=== PATIENT | male | born 1965 | race Caucasian/White ===

== ENCOUNTER 2018-08-02 13:31 | Emergency (ER) | payer MEDICARE ==
[~2018-08-02] VITALS: Ht 182.9 cm; Wt 90.9 kg
[2018-08-02 13:59] LABS: GLUCOSE,POINT OF CARE 106 MG/DL (70-110)
[2018-08-02] MEDS ORDERED: LORazepam 2 MG TABLET PO ONE (15:45)
[2018-08-02 15:54] LABS: BASOPHILS % (AUTO) 0.8 % (0.0-2.0); EOSINOPHILS % (AUTO) 4.6 % (1.0-6.0); HEMATOCRIT 39.3 % (41-53); HEMOGLOBIN 13.2 g/dL (13.5-17.5); LYMPHOCYTES # (AUTO) 1.7 K/uL (1.0-4.8); LYMPHOCYTES % (AUTO) 40.1 % (22.0-44.0); MEAN CORPUSCULAR HEMOGLOBIN 32.8 pg (26.0-34.0); MEAN CORPUSCULAR HGB CONC 33.5 G/dL (31.0-37.0); MEAN CORPUSCULAR VOLUME 98 fL (80-100); MONOCYTES # (AUTO) 0.5 K/uL (0.1-1.0); MONOCYTES % (AUTO) 11.9 % (2.0-9.0); NEUTROPHILS # (AUTO) 1.8 K/uL (1.8-7.7); NEUTROPHILS % (AUTO) 42.6 % (40.0-70.0); PLATELET COUNT (AUTO) 148 K/uL (150-450); RED BLOOD CELL COUNT(AUTO) 4.01 MIL/uL (4.50-5.90); RED CELL DISTRIBUTION WIDTH 14.8 % (11.5-14.5)
[2018-08-02 16:07] LABS: AMPHET/METH SCREEN,URINE POSITIVE (NEGATIVE); BARBITURATE SCREEN, URINE NEGATIVE (NEGATIVE); BENZODIAZEPINES SCREEN,URINE POSITIVE (NEGATIVE); CANNABINOID SCREEN,URINE NEGATIVE (NEGATIVE); COCAINE SCREEN,URINE NEGATIVE (NEGATIVE); METHADONE SCREEN, URINE NEGATIVE (NEGATIVE); OPIATE SCREEN,URINE NEGATIVE (NEGATIVE); PHENCYCLIDINE SCREEN,URINE NEGATIVE (NEGATIVE)
[2018-08-02 16:10] LABS: ALANINE AMINOTRANSFERASE 69 U/L (12-78); ALBUMIN 3.4 g/dL (3.4-5.0); ALKALINE PHOSPHATASE 82 U/L (46-116); ANION GAP 10 mmol/L (8-16); ASPARTATE AMINOTRANSFERASE 77 U/L (15-37); BILIRUBIN,TOTAL 0.4 mg/dL (0.1-1.0); CARBON DIOXIDE 29 mmol/L (22-29); CHLORIDE 104 mmol/L (98-107); GLOMERULAR FILTR. RATE CALC > 60 mL/min (>60); GLUCOSE,RANDOM 72 mg/dL (70-110); POTASSIUM 3.3 mmol/L (3.5-5.1); SODIUM SERUM 143 mmol/L (136-145); TOTAL PROTEIN, SERUM 7.3 g/dL (6.4-8.2); UREA NITROGEN, BLOOD 14 mg/dL (7-18)
[2018-08-02 16:24] LABS: CALCIUM, TOTAL 8.2 mg/dL (8.8-10.5)
[2018-08-02 16:34] VITALS: BP 113/74
[2018-08-02] MEDS ORDERED: POTASSIUM CHLORIDE 20 MEQ ER TABLET PO ONE (16:45)
== END 2018-08-02 17:48 | disposition home or self-care (01) ==
LOC: EMS 13:33
DX: F10.129 Alcohol abuse with intoxication, unspecified (principal); Y90.6 Blood alcohol level of 120-199 mg/100 ml
CPT/HCPCS: 36415; 80053; 80307; 82962; 85025; 93005; 99284; G0480

== ENCOUNTER 2020-03-18 12:22 | Inpatient (IN) | payer MEDICARE, MEDICAID ==
[~2020-03-18] VITALS: Ht 182.9 cm; Wt 111.2 kg
[2020-03-18] MEDS ORDERED: QUEtiapine FUMARATE 100 MG TABLET PO PRN (14:15)
[2020-03-18] MEDS ORDERED: LORazepam 1 MG TABLET PO PRN (14:15)
[2020-03-18] MEDS ORDERED: ZOLPIDEM TARTRATE 10 MG TABLET PO PRN (14:15)
[2020-03-18 14:30] VITALS: BP 117/77
[2020-03-18] MEDS ORDERED: CEPH-582 PO (15:16)
[2020-03-18] MEDS ORDERED: SOFO1TAB PO (15:16)
[2020-03-18] MEDS ORDERED: SULF1TAB42 PO (15:16)
[2020-03-18] MEDS ORDERED: NAPR250T4 PO (15:16)
[2020-03-18] MEDS ORDERED: QUET100T PO (15:16)
[2020-03-18] MEDS ORDERED: BUPR100 PO (15:16)
[2020-03-18 15:20] VITALS: BP 146/73
[2020-03-18 16:20] VITALS: BP 157/70
[2020-03-18 17:20] VITALS: BP 136/85
[2020-03-18 18:20] VITALS: BP 130/89
[2020-03-18] MEDS ORDERED: ACETAMINOPHEN 325 MG TABLET PO PRN (19:30)
[2020-03-18 19:35] VITALS: BP 112/77
[2020-03-19] MEDS ORDERED: SULFAMETHOX/TRIMETH DS 800-160 MG/TABLET PO SCH (09:00)
[2020-03-19] MEDS ORDERED: BACITRACIN 28.4 GM OINTMENT TP SCH (09:00)
[2020-03-19] MEDS ORDERED: CEPHALEXIN MONOHYDRATE 500 MG CAPSULE PO SCH (09:00)
== END 2020-03-18 23:30 | disposition short-term general hospital (02) | DRG 885 ==
LOC: B2S 14:00
PROVIDERS: ADMIT Psychiatry & Neurology Psychiatry; ATTEND Psychiatry & Neurology Psychiatry
DX: F25.9 Schizoaffective disorder, unspecified (principal)
CPT/HCPCS: Z7610

== ENCOUNTER 2020-07-13 20:43 | Inpatient (IN) | payer MEDICARE, MEDICAID ==
[~2020-07-13] VITALS: Ht 182.9 cm; Wt 99.3 kg
[~2020-07-13 20:43] MED LIST: BUPR-121 PO; QUET100T PO
[2020-07-14] MEDS ORDERED: HALOPERIDOL 5 MG TABLET PO PRN (02:30)
[2020-07-14 02:31] VITALS: BP 123/69
[2020-07-14] MEDS: ZOLPIDEM TARTRATE 10 MG TABLET PO PRN ×2 (03:12→20:28)
[2020-07-14] MEDS: LORazepam 2 MG TABLET PO PRN ×4 (03:12→18:24)
[2020-07-14] MEDS ORDERED: MAG HYDROX/AL HYDROX/SIMETH ES 30 ML SUSPENSION UDCUP PO PRN (06:30)
[2020-07-14] MEDS ORDERED: MAGNESIUM HYDROXIDE SUSPENSION 30 ML UDCUP PO PRN (06:30)
[2020-07-14] MEDS ORDERED: OMEPRAZOLE 20 MG CAPSULE PO PRN (06:30)
[2020-07-14] MEDS ORDERED: LOPERAMIDE HCL 2 MG CAPSULE PO PRN (06:30)
[2020-07-14] MEDS ORDERED: PETROLATUM,WHITE 28 GM JELLY TP PRN (06:30)
[2020-07-14] MEDS ORDERED: BACITRACIN 28 GM OINTMENT TP PRN (06:30)
[2020-07-14] MEDS ORDERED: CloNIDine HCL 0.1 MG TABLET PO PRN (06:30)
[2020-07-14] MEDS ORDERED: IBUPROFEN 600 MG TABLET PO PRN (06:30)
[2020-07-14] MEDS ORDERED: ONDANSETRON HCL 4 MG TABLET PO PRN (06:30)
[2020-07-14] MEDS ORDERED: ALBUTEROL SULFATE HFA 90 MCG/PUFF 8 GM INHALER IH PRN (06:30)
[2020-07-14] MEDS ORDERED: BENZOCAINE/MENTHOL LOZENGE PO PRN (06:30)
[2020-07-14] MEDS ORDERED: DOCUSATE SODIUM 100 MG CAPSULE PO PRN (06:30)
[2020-07-14 08:57] VITALS: BP 114/85
[2020-07-14] MEDS: ACETAMINOPHEN 325 MG TABLET PO PRN (09:01)
[2020-07-14 16:11] VITALS: BP 112/73
[2020-07-15 00:34] VITALS: BP 113/82
[2020-07-15] MEDS: LORazepam 2 MG TABLET PO PRN ×3 (00:34→12:41)
[2020-07-15] MEDS: ACETAMINOPHEN 325 MG TABLET PO PRN ×2 (02:57→08:35)
[2020-07-15] MEDS: BuPROPion HCL XL 150 MG ER TABLET PO SCH (08:30)
[2020-07-15 08:38] VITALS: BP 105/64
[2020-07-15] MEDS ORDERED: TraMADol HCL 50 MG TABLET PO PRN (13:15)
[2020-07-15] MEDS: OMEPRAZOLE 20 MG CAPSULE PO SCH (13:24)
[2020-07-15 16:07] VITALS: BP 137/94
[2020-07-15] MEDS: CELECOXIB 200 MG CAPSULE PO SCH (16:19)
[2020-07-15] MEDS: BACLOFEN 10 MG TABLET PO SCH (16:20)
[2020-07-15] MEDS: HydrOXYzine PAMOATE 50 MG CAPSULE PO SCH (20:08)
[2020-07-15] MEDS: QUEtiapine FUMARATE 100 MG TABLET PO SCH (20:08)
[2020-07-15] MEDS: ZOLPIDEM TARTRATE 10 MG TABLET PO PRN (20:33)
[2020-07-16 00:32] VITALS: BP 128/76
[2020-07-16] MEDS: BuPROPion HCL XL 150 MG ER TABLET PO SCH (08:37)
[2020-07-16] MEDS: LORazepam 2 MG TABLET PO PRN ×2 (08:37→16:30)
[2020-07-16] MEDS: BACLOFEN 10 MG TABLET PO SCH ×3 (09:00→16:30)
[2020-07-16] MEDS: OMEPRAZOLE 20 MG CAPSULE PO SCH (10:22)
[2020-07-16 15:13] VITALS: BP 108/64
[2020-07-16 16:07] VITALS: BP 105/71
[2020-07-16] MEDS: CELECOXIB 200 MG CAPSULE PO SCH (16:30)
[2020-07-16] MEDS: HydrOXYzine PAMOATE 50 MG CAPSULE PO SCH (20:10)
[2020-07-16] MEDS: QUEtiapine FUMARATE 100 MG TABLET PO SCH (20:10)
[2020-07-16] MEDS: ZOLPIDEM TARTRATE 10 MG TABLET PO PRN (20:10)
[2020-07-17 03:10] VITALS: BP 112/68
[2020-07-17] MEDS: CELECOXIB 200 MG CAPSULE PO SCH (06:46)
[2020-07-17 08:04] VITALS: BP 101/61
[2020-07-17] MEDS: OMEPRAZOLE 20 MG CAPSULE PO SCH (08:32)
[2020-07-17] MEDS: BuPROPion HCL XL 150 MG ER TABLET PO SCH (08:32)
[2020-07-17] MEDS: BACLOFEN 10 MG TABLET PO SCH ×3 (08:32→16:15)
[2020-07-17] MEDS: LORazepam 2 MG TABLET PO PRN ×2 (10:54→16:15)
[2020-07-17 16:08] VITALS: BP 132/76
[2020-07-17] MEDS: QUEtiapine FUMARATE 100 MG TABLET PO SCH (20:18)
[2020-07-17] MEDS: HydrOXYzine PAMOATE 50 MG CAPSULE PO SCH (20:18)
[2020-07-17] MEDS: ZOLPIDEM TARTRATE 10 MG TABLET PO PRN (20:18)
[2020-07-18 06:17] VITALS: BP 125/70
[2020-07-18] MEDS: LORazepam 2 MG TABLET PO PRN ×3 (06:39→17:26)
[2020-07-18] MEDS: CELECOXIB 200 MG CAPSULE PO SCH (07:01)
[2020-07-18] MEDS: OMEPRAZOLE 20 MG CAPSULE PO SCH (08:05)
[2020-07-18] MEDS: BACLOFEN 10 MG TABLET PO SCH ×3 (08:05→16:39)
[2020-07-18] MEDS: BuPROPion HCL XL 150 MG ER TABLET PO SCH (08:05)
[2020-07-18 08:06] VITALS: BP 105/66
[2020-07-18 16:09] VITALS: BP 115/74
[2020-07-18] MEDS: MUPIROCIN CALCIUM 2% 22 GM OINTMENT NASAL SCH (16:39)
[2020-07-18] MEDS: QUEtiapine FUMARATE 100 MG TABLET PO SCH (20:30)
[2020-07-18] MEDS: HydrOXYzine PAMOATE 50 MG CAPSULE PO SCH (20:30)
[2020-07-18] MEDS: ZOLPIDEM TARTRATE 10 MG TABLET PO PRN (20:34)
[2020-07-19 06:32] VITALS: BP 105/69
[2020-07-19] MEDS: CELECOXIB 200 MG CAPSULE PO SCH (06:36)
[2020-07-19] MEDS: LORazepam 2 MG TABLET PO PRN ×3 (06:39→17:09)
[2020-07-19] MEDS: OMEPRAZOLE 20 MG CAPSULE PO SCH (08:11)
[2020-07-19] MEDS: BuPROPion HCL XL 150 MG ER TABLET PO SCH (08:11)
[2020-07-19] MEDS: MUPIROCIN CALCIUM 2% 22 GM OINTMENT NASAL SCH ×2 (08:11→17:09)
[2020-07-19] MEDS: BACLOFEN 10 MG TABLET PO SCH ×3 (08:11→17:10)
[2020-07-19 09:03] VITALS: BP 117/73
[2020-07-19 16:42] VITALS: BP 100/67
[2020-07-19] MEDS: QUEtiapine FUMARATE 100 MG TABLET PO SCH (20:18)
[2020-07-19] MEDS: HydrOXYzine PAMOATE 50 MG CAPSULE PO SCH (20:18)
[2020-07-19] MEDS: ZOLPIDEM TARTRATE 10 MG TABLET PO PRN (20:19)
[2020-07-20 04:47] VITALS: BP 115/62
[2020-07-20] MEDS: LORazepam 2 MG TABLET PO PRN (05:29)
[2020-07-20] MEDS: CELECOXIB 200 MG CAPSULE PO SCH (06:47)
[2020-07-20 08:03] VITALS: BP 110/74
[2020-07-20] MEDS: OMEPRAZOLE 20 MG CAPSULE PO SCH (08:36)
[2020-07-20] MEDS: BACLOFEN 10 MG TABLET PO SCH (08:36)
[2020-07-20] MEDS: BuPROPion HCL XL 150 MG ER TABLET PO SCH (08:37)
[2020-07-20] MEDS: MUPIROCIN CALCIUM 2% 22 GM OINTMENT NASAL SCH (08:37)
[2020-07-20] MEDS ORDERED: HYDR50CA9 PO (10:40)
[2020-07-20] MEDS ORDERED: BACL10TA PO (10:42)
[2020-07-20] MEDS ORDERED: OMEP20 PO (10:43)
[2020-07-20] MEDS ORDERED: CELE200 PO (10:45)
== END 2020-07-20 11:45 | disposition home or self-care (01) | DRG 885 ==
LOC: B2S 07-14 01:45 → B3A 07-15 21:10
PROVIDERS: ADMIT Psychiatry & Neurology Psychiatry; ATTEND Psychiatry & Neurology Psychiatry
DX: F25.9 Schizoaffective disorder, unspecified (principal); F32.9 Major depressive disorder, single episode, unspecified; F41.9 Anxiety disorder, unspecified; G47.00 Insomnia, unspecified; K59.00 Constipation, unspecified; F19.10 Other psychoactive substance abuse, uncomplicated; F10.10 Alcohol abuse, uncomplicated; Z59.0 Homelessness; Z79.899 Other long term (current) drug therapy; Z72.0 Tobacco use
CPT/HCPCS: 87081; Z7610

== ENCOUNTER 2020-08-19 19:54 | Emergency (ER) | payer MEDICARE, MEDICAID ==
[~2020-08-19] VITALS: Ht 182.9 cm; Wt 106.8 kg
[~2020-08-19 19:54] MED LIST changes: +BACL10TA PO; +CELE200 PO; +HYDR50CA9 PO; +OMEP20 PO
[2020-08-19 22:24] LABS: COVID AG,FIA SOURCE NASOPHARYNGEAL
[2020-08-20 00:26] VITALS: BP 128/86
== END 2020-08-20 00:33 | disposition home or self-care (01) ==
LOC: EMS 20:01
DX: R50.9 Fever, unspecified (principal); F31.9 Bipolar disorder, unspecified; F17.210 Nicotine dependence, cigarettes, uncomplicated; Z20.828 Contact with and (suspected) exposure to other viral communicable diseases
CPT/HCPCS: 87426; Z7502

== ENCOUNTER 2020-09-04 17:06 | Emergency (ER) | payer MEDICARE, MEDICAID ==
[~2020-09-04] VITALS: Ht 182.9 cm; Wt 109.1 kg
[2020-09-04 22:34] VITALS: BP 135/88
[2020-09-04 23:11] LABS: COVID AG,FIA SOURCE NASOPHARYNGEAL
== END 2020-09-05 01:42 | disposition home or self-care (01) ==
LOC: EMS 17:06
DX: J02.9 Acute pharyngitis, unspecified (principal); Z20.828 Contact with and (suspected) exposure to other viral communicable diseases
CPT/HCPCS: 87426; Z7502